=== PATIENT | female | born 1950 | race Two or more races ===

== ENCOUNTER 2021-12-05 12:27 | Outpatient (CLI) | payer OTHER | END 2021-12-05 12:36 | disposition home or self-care (01) | LOC: MRI 12:27 | PROVIDERS: ATTEND Orthopaedic Surgery | DX: S83.201A Bucket-handle tear of unspecified meniscus, current injury, left knee, initial encounter (principal); M25.561 Pain in right knee; M25.562 Pain in left knee | CPT/HCPCS: 73721 ==